=== PATIENT | male | born 1955 | race Caucasian/White ===

== ENCOUNTER 2017-08-19 02:30 | Emergency (ER) | payer BC ==
[2017-08-19] MEDS ORDERED: HYDROcodone/Acetaminophen 10/325 mg Tablet ONE (02:53)
[2017-08-19] MEDS ORDERED: Ibuprofen 800 MG TAB ONE (02:53)
== END 2017-08-19 02:58 | disposition home or self-care (01) ==
LOC: BURERS 02:30
DX: G89.18 Other acute postprocedural pain (principal); M25.521 Pain in right elbow; I10 Essential (primary) hypertension; Z79.899 Other long term (current) drug therapy
CPT/HCPCS: 99283